=== PATIENT | female | born 1960 | race Caucasian/White ===

== ENCOUNTER 2021-09-14 15:16 | Emergency (ER) | payer OTHER, SELFPAY ==
--- NOTE | 2021-09-14 15:19 | ED.FEMALEGU ---
HPI - Female Genitourinary General Chief complaint: Urogenital-Female Stated complaint: Urinary Problem Time Seen by Provider: 09/14/21 15:19 Source: patient and RN notes reviewed History of Present Illness HPI Narrative: Patient is a 60-year-old female who presents the urgent care with complaints of a possible UTI due to urinary frequency, urgency, low back pain and suprapubic pressure. Patient states that its been ongoing for approximately 4 to 5 days. States that her blood sugars have been in the 140 range which is normal for her. Patient denies of any vomiting but states she has been nauseated. Denies a fever. Patient has not taken anything [id number] for her symptoms. No other acute complaints. No acute distress noted. Patient aware of the plan of care. Some parts of this dictation were generated by voice recognition software and may contain typographical and/or grammatical inaccuracies. Related Data Home Medications Medication Instructions Recorded Confirmed amiodarone 200 mg tablet 1 tablet PO BID 09/14/21 09/14/21 apixaban 5 mg tablet (Eliquis) 1 tablet PO BID 09/14/21 09/14/21 carvedilol 25 mg tablet 1 tablet PO BID 09/14/21 09/14/21 empagliflozin 25 mg tablet 1 tablet PO DAILY 09/14/21 09/14/21 (Jardiance) furosemide 40 mg tablet 2 tablet PO DAILY 09/14/21 09/14/21 glyburide 5 mg tablet 1 tablet PO QID 09/14/21 09/14/21 insulin glargine 100 unit/mL (3 30 unit subcut QHS 09/14/21 09/14/21 mL) subcutaneous pen (Lantus Solostar U-100 Insulin) nitroglycerin 0.4 mg sublingual 1 tablet sublingual Q5MIN PRN 09/14/21 09/14/21 tablet Chest Pain potassium chloride 10 mEq 1 tablet PO DAILY 09/14/21 09/14/21 tablet,extended release sacubitril 97 mg-valsartan 103 mg 1 tablet PO BID 09/14/21 09/14/21 tablet (Entresto) Allergies Allergy/AdvReac Type Severity Reaction Status Date / Time ondansetron [From Zofran] Allergy Severe Difficulty Verified 09/14/21 15:52 Breathing Sulfa (Sulfonamide Allergy Severe Difficulty Verified 09/14/21 15:51 Antibiotics) Breathing tetracycline Allergy Severe Difficulty Verified 09/14/21 15:52 Breathing Review of Systems Review of Systems: CONSTITUTIONAL: Denies fever, chills, or sweats. EYES: Denies visual changes, redness, or discharge. ENT: Denies rhinorrhea, congestion, sore throat, or otalgia. CARDIOVASCULAR: Denies chest pain, palpitations, or edema. RESPIRATORY: Denies cough or dyspnea. GASTROINTESTINAL: Denies abdominal pain, nausea, vomiting, or diarrhea. GENITOURINARY: Reports of dysuria, urinary frequency, urgency and suprapubic pressure SKIN: Denies rash or itching. MUSCULOSKELETAL: Denies back pain, joint pain, or myalgia. NEUROLOGIC: Denies headache, numbness, or weakness. All other systems reviewed are negative, except as documented in HPI. PMFSH Comments At the time of my signature, I reviewed and agree with the nursing past medical, surgical, social, and family history. There is no relevant family history pertinent to the patient complaint. Exam Narrative: GENERAL: This is a well-nourished, well-developed patient, in no apparent distress. HEAD: normocephalic, atraumatic. EYES: PERRL. Sclera clear/white. Vision is grossly intact. EARS: External ears normal NOSE: External nose normal with no obvious nasal discharge, nares without redness, no rhinorrhea. THROAT: Mucous membranes moist RESPIRATORY: Clear to auscultation. Breath sounds equal bilaterally. No wheezes, rales, or rhonchi. GASTROINTESTINAL: Abdomen soft, non-tender, nondistended. Bowel sounds are active. SKIN: warm, intact with no suspicious lesions or rash, good texture and turgor. NEURO: awake, alert, and oriented to person, place and time. There were no obvious focal neurologic abnormalities. EXTREMITIES: No clubbing, cyanosis, or edema. BACK: Bilateral CVA tenderness more notable to the left Course Course Level of Care: Express Care Visit Vital Signs Vital signs: Vit
[2021-09-14 15:26] VITALS: BP 151/100; PULSE 126; RESP 20; TEMP 36.7; O2SAT 96
== END 2021-09-14 16:05 | disposition home or self-care (01) ==
PROVIDERS: Emergency Provider Nurse Practitioner Family
DX: N30.90 Cystitis, unspecified without hematuria (principal); E78.00 Pure hypercholesterolemia, unspecified; I10 Essential (primary) hypertension; E11.9 Type 2 diabetes mellitus without complications
CPT/HCPCS: 81003; 87086; 99213; G0463

== ENCOUNTER 2023-04-12 10:57 | Emergency (ER) | payer OTHER, SELFPAY ==
[2023-04-12 11:08] VITALS: BP 138/80; PULSE 88; RESP 16; TEMP 36.6; O2SAT 97
--- NOTE | 2023-04-12 12:33 | ED.GENADULT ---
HPI - General Adult General Chief complaint: Upper Respiratory Infection Stated complaint: Sore Throat/Left Ear Pain Time Seen by Provider: 04/12/23 12:33 Source: patient, RN notes reviewed and old records reviewed Mode of arrival: ambulatory Limitations: no limitations History of Present Illness HPI narrative: 62-year-old female who presents to [facility] with complaints of sore throat, left ear pain, headache for the past 3-4 days with known exposure to strep from grandchildren. Patient also reports that she has some burning with urination for the past 4 days denies any known fevers, chills or body aches, denies any supra pubic pain or any CVA tenderness. Patient reports that she has been taking Tylenol and cold medication for her symptoms. MD complaint: sore throat, left ear pain,burning with urination Onset (ago): day(s) (3-4) Severity scale (1-10): 8 Quality: aching Exacerbating factors: eating (swallowing) Treatments prior to arrival: other (Tylenol and cold medication) Related Data Home Medications Medication Instructions Recorded Confirmed amiodarone 200 mg tablet 1 tablet PO BID 09/14/21 04/12/23 apixaban 5 mg tablet (Eliquis) 1 tablet PO BID 09/14/21 04/12/23 carvedilol 25 mg tablet 1 tablet PO BID 09/14/21 04/12/23 empagliflozin 25 mg tablet 1 tablet PO DAILY 09/14/21 04/12/23 (Jardiance) furosemide 40 mg tablet 2 tablet PO DAILY 09/14/21 04/12/23 glyburide 5 mg tablet 1 tablet PO QID 09/14/21 04/12/23 insulin glargine 100 unit/mL (3 30 unit subcut QHS 09/14/21 04/12/23 mL) subcutaneous pen (Lantus Solostar U-100 Insulin) nitroglycerin 0.4 mg sublingual 1 tablet sublingual Q5MIN PRN 09/14/21 04/12/23 tablet Chest Pain potassium chloride 10 mEq 1 tablet PO DAILY 09/14/21 04/12/23 tablet,extended release sacubitril 97 mg-valsartan 103 mg 1 tablet PO BID 09/14/21 04/12/23 tablet (Entresto) Allergies Allergy/AdvReac Type Severity Reaction Status Date / Time ondansetron [From Zofran] Allergy Severe Difficulty Verified 04/12/23 11:49 Breathing Sulfa (Sulfonamide Allergy Severe Difficulty Verified 04/12/23 11:49 Antibiotics) Breathing tetracycline Allergy Severe Difficulty Verified 04/12/23 11:49 Breathing Review of Systems Review of Systems: CONSTITUTIONAL: Denies fever, chills, or sweats. EYES: Denies visual changes, redness, or discharge. ENT: Denies rhinorrhea, congestion, positive sore throat, left otalgia.and headache discomfort CARDIOVASCULAR: Denies chest pain, palpitations, or edema. RESPIRATORY: Denies cough or dyspnea. GASTROINTESTINAL: Denies abdominal pain, nausea, vomiting, or diarrhea. GENITOURINARY: Reports dysuria no hematuria no suprapubic pain or CVA tenderness. SKIN: Denies rash or itching. MUSCULOSKELETAL: Denies back pain, joint pain, or myalgia. NEUROLOGIC: Denies headache, numbness, or weakness. PSYCHIATRIC: Denies anxiety or depression. All systems reviewed & are unremarkable except as noted in HPI and below PMFSH Past Medical History Medical History (Updated 04/14/23 @ 09:55 by Katarina Gonzales NP) CAD (coronary artery disease) Diabetes Elevated cholesterol Gall stones Hypertension Kidney stones Morbid obesity Surgical History Surgical History (Updated 04/14/23 @ 09:47 by Katarina Gonzales NP) H/O: hysterectomy Previous section x2 Social History Social History (Updated 04/14/23 @ 09:45 by Katarina Gonzales NP) Smoking status: Never smoker Alcohol intake: unknown Substance use type: does not use Living arrangements: with family Gender identity (if verbalized by the patient): Female Comments At time of signature, agree with nursing past medical, surgical, social and family history. There is no relevant family history pertinent to the presenting complaint Exam Narrative: GENERAL: Well-appearing, well-nourished, obese and in no acute distress. HEAD: Normocephalic, atraumatic. EYES: PERRLA and EOMI. ENT: Na
== END 2023-04-12 12:45 | disposition home or self-care (01) ==
PROVIDERS: Emergency Provider Registered Nurse
DX: N39.0 Urinary tract infection, site not specified (principal); J02.9 Acute pharyngitis, unspecified; H92.02 Otalgia, left ear; Z20.822 Contact with and (suspected) exposure to COVID-19; I25.10 Atherosclerotic heart disease of native coronary artery without angina pectoris; E11.9 Type 2 diabetes mellitus without complications; E78.00 Pure hypercholesterolemia, unspecified; I10 Essential (primary) hypertension; E66.01 Morbid (severe) obesity due to excess calories; Z68.43 Body mass index [BMI] 50.0-59.9, adult
CPT/HCPCS: 81003; 87081; 87086; 87426; 87804; 87880; 99213; G0463

== ENCOUNTER 2023-10-22 19:27 | Emergency (ER) | payer OTHER, SELFPAY ==
[2023-10-22 19:32] VITALS: BP 159/69; PULSE 83; RESP 16; TEMP 36.2; O2SAT 96
--- NOTE | 2023-10-22 19:46 | ED.GENADULT ---
HPI - General Adult General Chief complaint: Skin/Abscess/Foreign Body Stated complaint: Facial Swelling Source: patient Mode of arrival: ambulatory Limitations: no limitations History of Present Illness HPI narrative: Patient presents for evaluation of facial swelling since this morning. She woke from sleep with her symptoms. Initially her eyes were swollen shut. She took some Benadryl her swelling has improved. She noticed some recurrence of the swelling the left cheek later in the day. She reports associated pruritus. No fever, chills, nausea, vomiting. She is diabetic and has a Dexcom. Blood sugars running in the 150s to 160s. Denies any dental pain. No otalgia. No new lotions, soaps, detergents, topical products. No new medications. Related Data Home Medications Medication Instructions Recorded Confirmed amiodarone 200 mg tablet 1 tablet PO BID 09/14/21 04/12/23 apixaban 5 mg tablet (Eliquis) 1 tablet PO BID 09/14/21 04/12/23 carvedilol 25 mg tablet 1 tablet PO BID 09/14/21 04/12/23 empagliflozin 25 mg tablet 1 tablet PO DAILY 09/14/21 04/12/23 (Jardiance) furosemide 40 mg tablet 2 tablet PO DAILY 09/14/21 04/12/23 glyburide 5 mg tablet 1 tablet PO QID 09/14/21 04/12/23 insulin glargine 100 unit/mL (3 30 unit subcut QHS 09/14/21 04/12/23 mL) subcutaneous pen (Lantus Solostar U-100 Insulin) nitroglycerin 0.4 mg sublingual 1 tablet sublingual Q5MIN PRN 09/14/21 04/12/23 tablet Chest Pain potassium chloride 10 mEq 1 tablet PO DAILY 09/14/21 04/12/23 tablet,extended release sacubitril 97 mg-valsartan 103 mg 1 tablet PO BID 09/14/21 04/12/23 tablet (Entresto) Allergies Allergy/AdvReac Type Severity Reaction Status Date / Time ondansetron [From Zofran] Allergy Severe Difficulty Verified 04/12/23 11:49 Breathing Sulfa (Sulfonamide Allergy Severe Difficulty Verified 04/12/23 11:49 Antibiotics) Breathing tetracycline Allergy Severe Difficulty Verified 04/12/23 11:49 Breathing Review of Systems Review of Systems: CONSTITUTIONAL: Denies fever, chills, or sweats. EYES: Denies visual changes, redness, or discharge. ENT: Reports swelling to the face. Denies rhinorrhea, congestion, sore throat, or otalgia. CARDIOVASCULAR: Denies chest pain, palpitations, or edema. RESPIRATORY: Denies cough or dyspnea. GASTROINTESTINAL: Denies abdominal pain, nausea, vomiting, or diarrhea. GENITOURINARY: Denies dysuria or hematuria. SKIN: Reports facial itching MUSCULOSKELETAL: Denies back pain, joint pain, or myalgia. NEUROLOGIC: Denies headache, numbness, dizziness, or weakness. PSYCHIATRIC: Denies anxiety or depression. [facility] Past Medical History Medical History CAD (coronary artery disease) Diabetes Elevated cholesterol Gall stones Hypertension Kidney stones Morbid obesity Surgical History Surgical History H/O: hysterectomy Previous section x2 Social History Social History Smoking status: Never smoker Alcohol intake: unknown Substance use type: does not use Living arrangements: with family Gender identity (if verbalized by the patient): Female Exam Narrative: GENERAL: Well-appearing, well-nourished, and in no acute distress. HEAD: Normocephalic, atraumatic. EYES: PERRLA and EOMI. ENT: Nares clear, no rhinorrhea or epistaxis. Mucous membranes moist. Oropharynx without tonsillar hypertrophy exudate or other lesions. Dentures intact upper. No dentures on lower. Trace maxillary facial swelling. Bilateral TMs pearly good nonbulging NECK: Supple. No adenopathy or masses. No carotid bruits or JVD CHEST: Clear to auscultation. No respiratory distress. No wheezes rales or rhonchi HEART: Regular rate and rhythm. No murmur heard. Normal peripheral pulses. ABDOMEN: Soft, nontender,
== END 2023-10-22 19:48 | disposition home or self-care (01) ==
PROVIDERS: Emergency Provider Nurse Practitioner
DX: R22.0 Localized swelling, mass and lump, head (principal); I25.10 Atherosclerotic heart disease of native coronary artery without angina pectoris; E11.9 Type 2 diabetes mellitus without complications; Z79.84 Long term (current) use of oral hypoglycemic drugs; Z79.4 Long term (current) use of insulin; E78.00 Pure hypercholesterolemia, unspecified; I10 Essential (primary) hypertension; E66.01 Morbid (severe) obesity due to excess calories; Z68.43 Body mass index [BMI] 50.0-59.9, adult; Z79.82 Long term (current) use of aspirin
CPT/HCPCS: 99213; G0463